=== PATIENT | male | born 1935 ===

== ENCOUNTER 2025-04-08 10:57 | Day surgery (SDC) | payer OTHER ==
[~2025-04-08] VITALS: Ht 157.5 cm; Wt 90.0 kg
[~2025-04-08 10:57] MED LIST: Balanced Salt Epinephrine Irrigation Solution 500 mL IR SCH; Moxifloxacin HCL 0.5 MG/0.1 ML 0.4MLSYR RIGHTEYE SCH; Ondansetron 4 MG SoluTab MM PRN; PHENYLEPHRINE\\TROPICAMIDE\\TETRACAINE OPHTHALMIC DILATING SOLN RIGHTEYE PRN; Povidone-Iodine 450 DROP/30 ML Solution ONE; Povidone-Iodine 450 DROP/30 ML Solution RIGHTEYE SCH; Tetracaine HCl/Pf 0.5% Opth Soln 4 ml ONE; diazePAM 5 MG,diazePAM 2 MG PO SCH
--- NOTE | 2025-04-08 11:56 | NUR ---
04/08/25 1156 Jose Angel Zuñiga CALL LIGHT WITHIN REACH. EYE DROPS AROUND 1154. PT ON CONTINOUS PULSE OXIMETER FOR CLOSE MONITORING
[2025-04-08] MEDS ORDERED: LEVOTHYROXINE50 MC9 PO (12:05)
[2025-04-08] MEDS ORDERED: LACT PO (12:06)
[2025-04-08] MEDS ORDERED: FINA5 PO (12:06)
[2025-04-08] MEDS ORDERED: REGULOID PO (12:06)
[2025-04-08] MEDS ORDERED: TAMS.4ER PO (12:06)
--- NOTE | 2025-04-08 12:48 | NUR ---
04/08/25 1248 Rona Cruz 1245 BP:166/92 HR:66 O2:97% RESP:16
== END 2025-04-08 13:14 | disposition home or self-care (01) ==
LOC: ORSCSDS 10:57
PROVIDERS: Student in an Organized Health Care Education/Training Program
PROC: 08RJ3JZ Replacement of Right Lens with Synthetic Substitute, Percutaneous Approach (ICD-10-PCS; principal; 2025-04-08 12:30)
DX: H25.813 Combined forms of age-related cataract, bilateral (principal)
CPT/HCPCS: A9270; V2632

== ENCOUNTER 2025-04-22 09:53 | Day surgery (SDC) | payer OTHER ==
[~2025-04-22] VITALS: Ht 157.5 cm; Wt 88.8 kg
[~2025-04-22 09:53] MED LIST changes: +FINA5 PO; +LACT PO; +LEVOTHYROXINE50 MC9 PO; +Moxifloxacin HCL 0.5 MG/0.1 ML 0.4MLSYR LEFTEYE SCH; -Moxifloxacin HCL 0.5 MG/0.1 ML 0.4MLSYR RIGHTEYE SCH; +PHENYLEPHRINE\\TROPICAMIDE\\TETRACAINE OPHTHALMIC DILATING SOLN LEFTEYE PRN; -PHENYLEPHRINE\\TROPICAMIDE\\TETRACAINE OPHTHALMIC DILATING SOLN RIGHTEYE PRN; +Povidone-Iodine 450 DROP/30 ML Solution LEFTEYE SCH; -Povidone-Iodine 450 DROP/30 ML Solution RIGHTEYE SCH; +REGULOID PO; +TAMS.4ER PO
--- NOTE | 2025-04-22 10:19 | NUR ---
04/22/25 1019 Jose Angel Zuñiga CALL LIGHT WITHIN REACH. EYE DROPS AROUND 1016. PT ON CONTINOUS PULSE OXIMETER FOR CONTINOUS MONITORING.
--- NOTE | 2025-04-22 11:08 | NUR ---
04/22/25 1108 Reyna Miranda HR:66 RR:16 BP:147/86 SPO2:94% ON 10L BLOW BY O2
== END 2025-04-22 11:49 | disposition home or self-care (01) ==
LOC: ORSCSDS 09:53
PROVIDERS: Student in an Organized Health Care Education/Training Program
PROC: 08RK3JZ Replacement of Left Lens with Synthetic Substitute, Percutaneous Approach (ICD-10-PCS; principal; 2025-04-22 11:30)
DX: H25.812 Combined forms of age-related cataract, left eye (principal); Z96.1 Presence of intraocular lens
CPT/HCPCS: A9270; V2632